=== PATIENT | female | born 1985 | race Caucasian/White ===

== ENCOUNTER 2020-09-22 10:00 | Outpatient (RCR) | payer OTHER, SELFPAY ==
[2020-09-22] MEDS: RHO(D) IMMUNE GLOBULIN 300 MCG/2 ML SYRINGE IM (12:51)
== END 2020-11-01 13:45 | disposition home or self-care (01) ==
LOC: ANHOBOP 10:00
PROVIDERS: PCP Physician Assistant; Visit Provider Obstetrics & Gynecology
DX: Z29.13 Encounter for prophylactic Rho(D) immune globulin (principal); O36.0190 Maternal care for anti-D [Rh] antibodies, unspecified trimester, not applicable or unspecified; Z3A.00 Weeks of gestation of pregnancy not specified
CPT/HCPCS: 36415; 85461; 90384; 96372; 99199; J2790

== ENCOUNTER 2020-11-11 06:47 | Inpatient (IN) | payer OTHER, SELFPAY ==
--- NOTE | 2020-11-09 14:07 | P.HP_ITS ---
Obstetrics - Admit Note Admission Note: record reviewed. No pertinent additions to the history and/or any subsequent changes in the physical findings that are not consistent with the expected course of the were found. Additions to the history and/or subsequent changes in the physical findings follow. None. 35 y/o F , 39w by first trimester ultrasound with excellent dating with an CHRISSY of 11/18/20. Her care began 04/06/20 and has had 12 visits. Her is complicated by previous emergency for placental abruption, who now is presenting for a repeat low transverse under spinal anesthesia. Her other complications are MTHFR, abnormal progesterone, GBS carrier, RH negative, rubella non-immune, PCOS and h/o pre- eclampsia. Her was monitored with ultrasounds each trimester, B12 injections, aspirin, folic acid and progesterone supplements. NIPT normal, AFP normal, GTT normal, GBS positive. Rhogam was given at 28 weeks. I have explained her procedure and risks involved, including bleeding, infection, injury to bladder, bowel, baby, DVT, pneumonia, wound infection, UTI, risk of post infection and hemorrhage and risk of anesthesia. She understands all this, accepts and proceeds to agree. She is having a boy, will circumcise, breast feeding, PPBC is slynd while nursing
--- NOTE | 2020-11-09 14:07 | PM.IMHP ---
H&P: HPI History of Present Illness Date/Time: 11/09/20 14:07 35 y/o F , 39w by first trimester ultrasound with excellent dating with an CHRISSY of 11/18/20. Her care began 04/06/20 and has had 12 visits. Her is complicated by previous emergency for placental abruption, who now is presenting for a repeat low transverse under spinal anesthesia. Her other complications are MTHFR, abnormal progesterone, GBS carrier, RH negative, rubella non-immune, PCOS and h/o pre-eclampsia. Her was monitored with ultrasounds each trimester, B12 injections, aspirin, folic acid and progesterone supplements. NIPT normal, AFP normal, GTT normal, GBS positive. Rhogam was given at 28 weeks. I have explained her procedure and risks involved, including bleeding, infection, injury to bladder, bowel, baby, DVT, pneumonia, wound infection, UTI, risk of post infection and hemorrhage and risk of anesthesia. She understands all this, accepts and proceeds to agree. She is having a boy, will circumcise, breast feeding, PPBC is slynd while nursing. Chief Complaint: term previous desired repeat Review of Systems Review of Systems: All systems reviewed & are unremarkable except as noted in HPI and below Constitutional: Constitutional: Reports no additional constitutional complaints Eyes: Eyes: Reports no additional eye complaints ENT: Reports nasal congestion, Reports nasal discharge and Reports sinus pressure Cardiovascular: Cardiovascular: Reports no additional cardiovascular complaints Respiratory: Respiratory: Reports no additional respiratory complaints Gastrointestinal: Gastrointestinal: Reports no additional gastrointestinal complaints Genitourinary: Genitourinary: Reports no additional female genitourinary complaints Musculoskeletal: Musculoskeletal: Reports no additional musculoskeletal complaints Integumentary/Breasts: Skin/Breast: Reports system reviewed and no additional complaints, except as docu Neurologic: Reports system reviewed and no additional complaints, except as documented Psychiatric: Psychiatric: Reports no additional psychiatric complaints Endocrine: Endocrine: Reports no additional endocrine complaints Hematologic/Lymphatic: Hematologic/Lymphatic: Reports no additional hematologic/lymphatic complaints Allergic/Immunologic: Allergic/Immunologic: Reports seasonal rhinorrhea [facility] Past Medical History Medical History (Updated 11/09/20 @ 14:55 by Martin Martinez MD) 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 Depressive disorder GBS (group B Streptococcus carrier), +RV culture, currently History of placental abruption History of pre-eclampsia Low serum progesterone PCOS (polycystic ovarian syndrome) Rh negative state in antepartum period Rubella non-immune status, antepartum Surgical History Surgical History (Updated 11/09/20 @ 14:55 by Martin Martinez MD) Delivery by section History of tooth extraction Family History Family History (Updated 11/09/20 @ 14:59 by Martin Martinez MD) Grandparent Hypertension Breast cancer Hypercholesterolemia Social History Social History (Updated 11/09/20 @ 14:57 by Martin Martinez MD) Years smoked: 2 Smoking status: Former smoker Tobacco type: cigarettes Second hand tobacco smoke exposure: Yes Alcohol intake: former Substance use: never Substance use type: does not use Living arrangements: with family Occupation/Education: unemployed Gender identity (if verbalized by the patient): Female Sexual Orientation (if Verbalized by the Patient): Straight or Heterosexual Spiritual care concerns: No Agree to blood products: Yes Meds Home Medications and Allergies Home Medications Medication Instructions Recorded Confirmed Type PNV cmb#95-ferrous fumarate-FA 1 tablet PO DAILY 10/20/20 10/20/20 History []
[2020-11-11] VITALS (59 sets, daily range): BP systolic 109–139; BP diastolic 46–105; PULSE 59–90; RESP 15–18; TEMP 35.8–37; O2SAT 98–100; BMI 31.1
--- OUTSIDE RECORDS SUMMARY | 2020-11-11 06:54 | XMS_ITS | Encounter Summary ---
:1985 Author Care Team Providers Name Role Phone Martin Martinez MD Sanitary Plumber [phone] Reason for Visit ob routine visit Assessment and Plan 1. Routine care ? urinalysis, dipstick 2. Deliveries by emergency c-sect. 02/27/2017 fo r [facility] placental abruption repeat c section on 11/11/20 39 weeks An derson 3. Abnormal progesterone 4. Heterozygous methylenetetrahy drofolate reductase mutation 5. Group B Streptococcus carrier antibiotics needed at delivery 6. RhD negative 28weeks 7. Placental abruption - deliver ed emergency c-sect. 02/27/2017 8. depression escitalopram 10 mg started ? depression after childbirt h: care instructions ? stress in parents of infan ts: care instructions 9. Acute sinusitis ? sinusitis: care instructio ns ? Zithromax Z-Nathaniel 250 mg tab let ? Zyrtec 10 mg tablet ? Flonase Allergy Relief 50 mcg/actuation nasal spray,suspension ? montelukast 10 mg tablet Discussion Note: None recorded. Plan of Care Reminders Provider Appointments 12/01/2020 Mary Grace Dougherty 10:30AM ? Return to on or around Martin Martinez
--- OUTSIDE RECORDS SUMMARY | 2020-11-11 06:54 | XMS_ITS | Encounter Summary ---
:1985 Author Care Team Providers Name Role Phone Martin Martinez MD Affirmative Action Officer [phone] Reason for Visit ob routine follow up Assessment and Plan 1. Routine care ? US, obstetric, 3rd trimest er ? counting your baby's kicks : care instructions ? kick counts ? CBC - In addition to our o ffice, please fax results to [facility] [phone] 2. screening ? glucose tolerance test, po st-50G, 1-hour - In addition to our office, please fax results to [facility] [phone] 3. Venereal disease screening ? HIV 1+2 AB + HIV 1 p24 Ag, qualitative immunoassay, serum - Please fax results to [facility] [phone] ? RPR (rapid plasma reagin), serum - Please fax results to [facility] [phone] 4. Heterozygous methylenetetrahy drofolate reductase mutation Discussion Note: None recorded. Plan of Care Reminders Provider Appointments 12/01/2020 Martin Martinez MD 15 10:30AM ? Return to on or around Martin Martinez MD Office 12/13/2020 Lab [facility] 09/21/2020 [facility] ? Glucose 09/21/2020 [facility] Tolerance Test, Post-50G, 1-Hour ? HIV 1+2 AB + 09/21/2020 [facility] HIV 1 P24 Ag,
--- OUTSIDE RECORDS SUMMARY | 2020-11-11 06:54 | XMS_ITS | Encounter Summary ---
:1985 Author Care Team Providers Name Role Phone Martin Martinez MD Nutrition Services Assistant [phone] Reason for Visit ob routine visit Assessment and Plan Assessment Note COLEMAN Ott 1. Routine care LBUNA at 36w5d. compli cated by hx of PCOS, MTHFR, GBS carrier, previous delivery, 1st pregnan cy complicated by placental abruption at 40w1d. 3rd trimester US on 10/03/20, EFW 24%. RTC in 1w with Dr. Martinez. ? urinalysis, dipstick 2. Deliveries by Repeat scheduled for 11/11/2020. 3. Heterozygous methylenetetrahy drofolate reductase mutation heterozygous for the MTHFR C67 7T variant. Continue folic acid, aspirin. Last B12 administered 10/20/20. 4. History of pre-eclampsia Continue ASA for pre-eclampsia prevention, warning signs discussed. 5. RhD negative Rhogam injection given around 28w. Discussion Note: None recorded.Patient educational handouts: No information available. Plan of Care Reminders Provider Appointments 12/01/2020 Martin Martinez, 15 10:30AM ? Return to on or around Martin Martinez, Office 12/13/2020 Lab Urinalysis, 10/26/2020 In-Of fice Order Dipstick Referral None ? ? recorded. Procedures None ? ? recorded.
--- OUTSIDE RECORDS SUMMARY | 2020-11-11 06:54 | XMS_ITS | Encounter Summary ---
:1985 Author Care Team Providers Name Role Phone Martin Martinez MD Electrician Crane Maintenance [phone] Reason for Visit ob routine visit Assessment and Plan 1. Routine care emergency c-sect. 02/27/2017 fo r [facility] placental abruption ? US, obstetric, 3rd trimest er ? counting your baby's kicks : care instructions ? kick counts ? CBC - In addition to our o ffice, please fax results to [facility] [phone] 2. Deliveries by emergency c-sect. 02/27/2017 fo r [facility] placental abruption 3. Heterozygous methylenetetrahy drofolate reductase mutation 4. RhD negative 28weeks ? antibody screen, serum or plasma 5. History of pre-eclampsia 6. screening ? glucose tolerance test, po st-50G, 1-hour - In addition to our office, please fax results to [facility] [phone] Discussion Note: None recorded. Plan of Care Reminders Provider Appointments 12/01/2020 Martin Martinez MD 15 10:30AM ? Return to on or around Martin Martinez MD Office 12/13/2020 Lab C[facility] 09/21/2020 [facility] ? Glucose 09/21/2020 [facility] Tolerance Test, Post-50G, 1-Hour ? Antibody 09/21/2020 [facility]
--- OUTSIDE RECORDS SUMMARY | 2020-11-11 06:54 | XMS_ITS | Encounter Summary ---
:1985 Author Care Team Providers Name Role Phone Martin Martinez MD Build Automation Engineer [phone] Reason for Visit ob routine visit Assessment and Plan 1. Routine care emergency c-sect. 02/27/2017 fo r [facility] placental abruption ? urinalysis, dipstick 2. Deliveries by emergency c-sect. 02/27/2017 fo r [facility] placental abruption repeat c section on 11/11/20 39 weeks ? section (SURG) 3. Heterozygous methylenetetrahy drofolate reductase mutation 4. History of pre-eclampsia Discussion Note: None recorded.Patient educational handouts: No information available. Plan of Care Reminders Provider Appointments 12/01/2020 Martin Martinez, 15 10:30AM ? Return to on or around Martin Martinez, Office 12/13/2020 Lab Urinalysis, 10/06/2020 In-Of fice Order Dipstick Referral None ? ? recorded. Procedures None ? ? recorded. Surgeries 10/06/2020 [facility] (SURG) [facility] None ? ? recorded. Medications Name Start Date ? ? aspirin 81 mg tablet,delayed release ? TAKE 1 TABLET BY MOUTH TWICE A DAY cyanocobalamin (vit B-12) 1,000 mcg/mL injection solut ion ? Inject 1 mL every month by subcutaneous route. escitalopram 10 mg tablet ?
--- OUTSIDE RECORDS SUMMARY | 2020-11-11 06:54 | XMS_ITS | Encounter Summary ---
:1985 Author Care Team Providers Name Role Phone Martin Martinez MD Director Of Estate [phone] Reason for Visit ob routine visit Assessment and Plan Assessment Note RONNY ButtS 1. Routine care ? culture, vaginal/rectal, s treptococcus group B - PLEASE FAX RESULTS TO [facility] [phone] ? bacterial vaginosis + vagi nitis panel, vaginal - PLEASE FAX RESULTS TO [facility] [phone] ? HSV (1+2) DNA, qual, PCR, unspecified specimen - PLEASE FAX RESULTS TO [facility] AT [phone] ? urinalysis, dipstick 2. Heterozygous methylenetetrahy drofolate reductase mutation B12 given today. 3. Deliveries by emergency c-sect. 02/27/2017 fo r [facility] placental abruption repeat c section on 11/11/20 39 weeks An derson 4. Abnormal progesterone 5. Group B Streptococcus carrier 6. Polycystic ovary syndrome 7. Rubella non-immune pp booster Discussion Note: None recorded.Patient educational handouts: No information available. Plan of Care Reminders Provider Appointments 15 12/01/2020 Demi sears 10:30AM MD Juan ? Return to on or around Martin Office 12/13/2020 MD Juan [facility]
--- OUTSIDE RECORDS SUMMARY | 2020-11-11 06:54 | XMS_ITS | Encounter Summary ---
:1985 Author Care Team Providers Name Role Phone Martin Martinez MD Transcription Manager [phone] Reason for Visit ob routine visit Assessment and Plan 1. Routine care ? urinalysis, dipstick 2. Deliveries by emergency c-sect. 02/27/2017 fo r [facility] placental abruption repeat c section on 11/11/20 39 weeks An derson 3. Heterozygous methylenetetrahy drofolate reductase mutation 4. Group B Streptococcus carrier 5. History of pre-eclampsia 6. RhD negative 28weeks 7. Placental abruption - deliver ed emergency c-sect. 02/27/2017 8. depression ? depression after childbirt h: care instructions ? stress in parents of infan ts: care instructions ? escitalopram 10 mg tablet Discussion Note: None recorded. Plan of Care Reminders Provider Appointments 12/01/2020 Martin Martinez, 15 10:30AM ? Return to on or around Martin Martinez, Office 12/13/2020 Lab Urinalysis, 11/03/2020 In-Of fice Order Dipstick Referral None ? ? recorded. Procedures None ? ? recorded. Surgeries None ? ? recorded.
--- OUTSIDE RECORDS SUMMARY | 2020-11-11 06:54 | XMS_ITS ---
:1985 Author Care Team Providers Name Role Phone VIRGINIA TIDWELL MD Forms Designer [phone] Allergies Code Code System Name Reaction Severity Status Onset [id number] RxNorm Josep Hives Moderate Active ? NKDA ? Medications Name Status Start Date Stop Date ? ? aspirin 81 mg tablet,delayed release Active ? Not available TAKE 1 TABLET BY MOUTH TWICE A DAY Calcium 600 with Vitamin D3 600 mg (1,500 mg)-400 unit capsule C ompleted ? 04/20/2020 Take 1 capsule twice a day by oral route. calcium carbonate 600 mg (1,500 mg)-vitamin D3 400 unit tablet C ompleted ? 05/04/2020 TAKE 1 TABLET BY MOUTH TWICE A DAY cyanocobalamin (vit B-12) 1,000 mcg/mL injection solution Active ? Not available Inject 1 mL every month by subcutaneous route. escitalopram 10 mg tablet Active ? Not av ailable Flonase Allergy Relief 50 mcg/actuation nasal spray,suspension A ctive ? Not available [place] 1 spray every day by intranasal route as directed. folic acid 1 mg tablet Active ? Not avail able TAKE 2 TABLETS BY MOUTH TWICE A DAY Linzess 145 mcg capsule Active ? Not avai lable Take 1 capsule every day by oral route. metformin 500 mg tablet Active ? Not avai lable metoclopramide 10 mg tablet Active ? Not available Take 1 tablet 4 times a day by oral route as directed. montelukast 10 mg tablet Active ? Not roxanne ilable Take 1 tablet every day by oral route. multivitamin tablet Completed ? 04/20/2020 Take 1 tablet every day by oral route. norethindrone (contraceptive) 0.35 mg Completed ?
--- OUTSIDE RECORDS SUMMARY | 2020-11-11 06:55 | XMS_ITS ---
:1985 Author Care Team Providers Name Role Phone [facility] Primary Care Provider Unavailable Allergies Code Code System Name Reaction Severity Status Onset NKDA ? Notes: cats Medications Name Status Start Date Stop Date ? ? atovaquone 250 mg-proguanil 100 mg Completed ? 08/03/2016 tablet ibuprofen 600 mg tablet Completed ? 03/26/19 18 Iron (ferrous sulfate) Active ? Not avail able norethindrone (contraceptive) 0.35 mg Active ? Not available tablet oxycodone-acetaminophen 5 mg-325 mg Completed ? 03/26/2017 tablet prednisone 10 mg tablet Unknown ? Not avai lable Active ? Not available Ventolin HFA 90 mcg/actuation aerosol inhaler Unknown ? Not available INHALE ONE TO TWO PUFFS Q 4-6 HOURS PRN FOR COUGH AND WHEEZING. Vivotif 2 billion unit capsule,delayed release Completed ? 08/03/2016 TK ONE CAPSULE PO QOD YF-Vax (PF) 10 exp4.74 unit/0.5 mL subcutaneous suspension Compl eted ? 08/03/2016 [address] [facility] Notes: pnv Problems Name Status Onset Date Source ? Unknown 10/10/2016 ? Carito Active ? Encounter Irregular Periods Active ? ? Procedures Date Name Performed by ? 02/27/2017 Delivery Information not carter chavez 02/27/2017 Information not kellyai [facility]
--- OUTSIDE RECORDS SUMMARY | 2020-11-11 06:55 | XMS_ITS ---
:1985 Author Care Team Providers Name Role Phone [facility] Primary Care Provider Unavailable Allergies Code Code System Name Reaction Severity Status Onset NKDA ? Medications Name Status Start Date Stop Date ? ? atovaquone 250 mg-proguanil 100 mg tablet Active ? Not available Cheratussin AC 10 mg-100 mg/5 mL oral liquid Active ? Not available Take 5 mL every 4 hours by oral route as needed. fluticasone propionate 50 mcg/actuation nasal spray,suspension A ctive ? Not available Inhale 2 sprays every day by intranasal route. ibuprofen 600 mg tablet Active ? Not avai lable nitrofurantoin monohydrate/macrocrystals Active ? Not available 100 mg capsule norethindrone (contraceptive) 0.35 mg Active ? Not available tablet oxycodone-acetaminophen 5 mg-325 mg tablet Active ? Not available prednisone 10 mg tablet Active ? Not avai lable Ventolin HFA 90 mcg/actuation aerosol Active ? Not available inhaler Vivotif 2 billion unit capsule,delayed release Active ? Not available TK ONE CAPSULE PO QOD YF-Vax (PF) 10 exp4.74 unit/0.5 mL subcutaneous suspension Activ e ? Not available [facility] Problems Name Status Onset Date Source ? Postviral Cough Active ? Encounter Upper Respiratory Infection Active ? Enco unter Acute Upper Respiratory Infection Active ?
--- OUTSIDE RECORDS SUMMARY | 2020-11-11 06:55 | XMS_ITS ---
:1985 Author Care Team Providers Name Role Phone [facility] Primary Care Provider Unavailable Allergies Code Code System Name Reaction Severity Status Onset NKDA ? Medications Name Status Start Date Stop Date ? ? albuterol sulfate 2.5 mg/3 mL (0.083 %) solution for nebulizatio n Unknown ? Not available Inhale 3 mL every day by nebulization route. atovaquone 250 mg-proguanil 100 mg Completed ? 12/18/2017 tablet Cheratussin AC 10 mg-100 mg/5 mL oral liquid Unknown ? Not available Take 10 mL every 4 hours by oral route. ibuprofen 600 mg tablet Active ? Not avai lable PRN Levaquin 500 mg tablet Unknown ? Not avail able Take 1 tablet every 24 hours by oral route. Macrobid 100 mg capsule Completed ? 12/18/19 18 Take 1 capsule every 12 hours by oral route. Medrol (Nathaniel) 4 mg tablets in a dose pack Unknown ? Not available Take by oral route as directed norethindrone (contraceptive) 0.35 mg Completed ? 04/17/2018 tablet oxycodone-acetaminophen 5 mg-325 mg Completed ? 12/18/2017 tablet Pepcid Active ? Not available takes PRN prednisone 10 mg tablet Unknown ? Not avai lable ProAir HFA 90 mcg/actuation aerosol inhaler Unknown ? Not available Inhale 2 puffs every 6 hours by inhalation route. Pyridium 200 mg tablet Completed ? 8 Take 1 tablet 3 times a day by oral route for 3 days.
--- NOTE | 2020-11-11 07:19 | LDADM ---
This patient, Josey Cedillo, was admitted to Labor/Delivery/Recovery 119 on 11/11/20 at 06:47. Plans for labor, pain management and were discussed with patient. Patient/family oriented to hospital policies and general routines including ID bracelet, bed and alarms, visiting hours, pain management, procedures, bathroom and other care routines, personal items, smoking policy, room service/diet and guest tray routines, security routines, and visiting hours. Patient/Family are encouraged to report perceived risks to care and to ask questions if they do not understand what they are told or what they should do. See OBIX for further documentation.
[2020-11-11] MEDS: LACTATED RINGERS 1,000 ML 125 ML IV CONT (07:45)
--- NOTE | 2020-11-11 07:45 | P.HPUP_ITS ---
History and Physical Update Update Date/Time: 11/09/20 14:16 History and Physical has been reviewed, including an updated exam of the patient. There are NO changes in the patient's condition. Risks, benefits, and alternatives have been discussed and questions answered. Patient agrees to proceed with procedure. 35 y/o F , 39w by first trimester ultrasound with excellent dating with an CHRISSY of 11/18/20. Her care began 04/06/20 and has had 12 visits. Her is complicated by previous emergency for placental abruption, who now is presenting for a repeat low transverse under spinal anesthesia. Her other complications are MTHFR, abnormal progesterone, GBS carrier, RH negative, rubella non-immune, PCOS and h/o pre- eclampsia. Her was monitored with ultrasounds each trimester, B12 injections, aspirin, folic acid and progesterone supplements. NIPT normal, AFP normal, GTT normal, GBS positive. Rhogam was given at 28 weeks. I have explained her procedure and risks involved, including bleeding, i nfection, injury to bladder, bowel, baby, DVT, pneumonia, wound infection, UTI, risk of post infection and hemorrhage and risk of anesthesia. She understands all this, accepts and proceeds to agree. She is having a boy, will circumcise, breast feeding, PPBC is slynd while nursing
[2020-11-11 07:57] LABS: Basophils Percent Auto 0.4 % (0.2-1.2); Eosinophils Absolute Auto 0.2 K/mm3 (0-0.3); Eosinophils Percent Auto 2.9 % (0-4.4); Hematocrit 33.5 % (37.0-47.0); Hemoglobin 11.3 g/dL (12.0-15.0); Immature Granulocyte Absolute 0.03 K/mm3 (0.00-0.031); Immature Granulocyte Percent A 0.4 % (0-0.5); Lymphocytes Absolute Auto 1.71 K/mm3 (0.9-3.2); Lymphocytes Percent Auto 23.3 % (18.3-44.2); Mean Corpuscular HGB Conc 33.7 g/dl (32-36); Mean Corpuscular Hemoglobin 29.4 pg (26-34); Mean Platelet Volume 9.7 fl (7.4-10.4); Monocytes Absolute Auto 0.5 K/mm3 (0.1-0.6); Monocytes Percent Auto 6.3 % (2.6-8.5); Neutrophils Absolute Auto 4.9 K/mm3 (1.3-6.7); Neutrophils Percent Auto 66.7 % (45.5-73.1); Platelet Count Result 209 k/mm3 (150-375); Red Blood Count 3.85 M/mm3 (4.2-5.4); Red Cell Distribution Width 15.4 % (11.5-14.5); White Blood Count 7.4 K/mm3 (4.5-10.0)
--- NOTE | 2020-11-11 08:33 | WPDANESEPPF ---
Anes - Initial Pre Proc Eval Procedure: Operation Date: 11/11/20 09:00 Proposed Procedures p Repeat Section - Martin Martinez MD Date/Time: 11/11/20 08:33 Surgeon: Martin Martinez MD Pre Op Diagnosis: C Section Patient Data Age: 35 Gender: F Height: 1.7 m Weight: 90 kg Last Vital Signs Pulse 82 11/11/20 07:31 BP 128/76 11/11/20 07:31 Allergies Allergy/AdvReac Type Severity Reaction Status Date / Time naresh Allergy Rash Verified 11/11/20 07:29 Home Medications Medication Instructions Recorded Confirmed Type PNV cmb#95-ferrous fumarate-FA 1 tablet PO DAILY 10/20/20 11/11/20 History [] aspirin 81 mg PO BID 10/20/20 11/11/20 History metformin 500 mg PO BID 10/20/20 11/11/20 History Laboratory Tests 11/11/20 11/11/20 07:12 07:15 WBC 7.4 K/mm3 K/mm3 (4.5-10.0) RBC 3.85 M/mm3 L M/mm3 (4.2-5.4) Hgb 11.3 g/dL L g/dL (12.0-15.0) Hct 33.5 % L % (37.0-47.0) MCV 87.0 fl fl (80-100) MCH 29.4 pg pg (26-34) MCHC 33.7 g/dl g/dl (32-36) RDW 15.4 % H % (11.5-14.5) Plt Count 209 k/mm3 k/mm3 (150-375) MPV 9.7 fl fl (7.4-10.4) Immature Gran % (Auto) 0.4 % % (0-0.5) Neut % (Auto) 66.7 % % (45.5-73.1) Lymph % (Auto) 23.3 % % (18.3-44.2) Hardy % (Auto) 6.3 % % (2.6-8.5) Eos % (Auto) 2.9 % % (0-4.4) Baso % (Auto) 0.4 % % (0.2-1.2) Lymph # (Auto) 1.71 K/mm3 K/mm3 (0.9-3.2) Hardy # (Auto) 0.5 K/mm3 K/mm3 (0.1-0.6) Eos # (Auto) 0.2 K/mm3 K/mm3 (0-0.3) Baso # (Auto) 0.0 K/mm3 K/mm3 (0.0-0.1) Abs Immat Gran (auto) 0.03 K/mm3 K/mm3 (0.00-0.031) Absolute Neuts (auto) 4.9 K/mm3 K/mm3 (1.3-6.7) Absolute Nucleated RBC 0.0 K/mm3 K/mm3 (0.0-0.012) Nucleated RBC % 0.0 % % (0.0-0.2) RPR Pending Patient hx anesthesia problems: none Family hx anesthesia problems: none Results Review: All pre-operative results and documents have been reviewed as part of the pre-operative evaluation. [facility] Past Medical History Medical History Compound heterozygous MTHFR mutation [id number] Depressive disorder GBS (group B Streptococcus carrier), +RV culture, currently History of placental abruption History of pre-eclampsia Low serum progesterone PCOS (polycystic ovarian syndrome) Rh negative state in antepartum period Rubella non-immune status, antepartum Surgical History Surgical History Delivery by section History of tooth extraction Family History Family History Grandparent Hypertension Breast cancer Hypercholesterolemia Social History Social History Years smoked: 2 Smoking status: Never smoker Tobacco type: cigarettes Second hand tobacco smoke exposure: Yes Alcohol intake: former Substance use: never Substance use type: does not use Living arrangements: with family Occupation/Education: unemployed Gender identity (if verbalized by the patient): Female Sexual Orientation (if Verbalized by the Patient): Straight or Heterosexual Spiritual care concerns: No Agree to blood products: Yes Anes - Eval Final PreProcedure Day of Procedure 11/11/20 08:33 Patient weight: overweight Heart: regular rate and rhythm Lungs: clear to auscultation Airway: Mallampati scale class II Neurological: alert and oriented Last oral intake: >/= 8 hours ASA classification: II Emergent: no Anesthetic plan: proceed Anesthesia type and monitoring: regional spinal and standard monitoring Results Review: All pre-operative results and documents have been reviewed as part of the pre-operative evaluation. Informed Consent
[2020-11-11] MEDS: OXYTOCIN 10 UNITS/ML VIAL IM (09:06)
[2020-11-11] MEDS: ceFAZolin 2 GM/D5W 50 ML 2 GM/50 ML BAG IVPB (09:06)
--- NOTE | 2020-11-11 10:10 | W.PM.PROC2 ---
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 on 11/11/2020. Infant weighed 7 lb 4 oz score at 1 minute 9 and at 5 minutes 9. Normal transition to nursery in stable condition. Placenta delivered intact with three-vessel cord, nuchal cord x1 reduced at time of delivery. Clear amniotic fluid at the time of delivery Uterus tubes and ovaries normal. Cul-de-sac clear of any blood clots. Quantitative blood loss 525 mL. 2100 mL IV fluid. Salas catheter output 300 mL of urine. Counts correct. No complications. Antibiotic prophylaxis Ancef 2 g given. VTE prevention is SCDs. Patient taken to recovery room. Mom and baby stable condition Description of Procedure Patient was consented and taken to the operating room for desired repeat low-transverse . She was placed in sitting position and spinal anesthetic was administered. Patient was then placed in the supine position and Salas catheter was inserted. The abdomen was prepped in a sterile fashion. A time-out was performed. Sterile drapes were placed. An elliptical incision was performed on the old incision site. The old scar was removed using electrocautery and taken down to Marva's fascia. The abdominal fascia was identified and undermined with electric cautery bilaterally. The [place] clamps were placed on the lateral fascia to identify the superior and inferior abdominal fascia and to be undermined with electrocautery. Next the rectus muscle was incised in the midline using electrocautery and the peritoneum was digitally dissected. Confirmation of the vertex position of the fetus. Followed by low-transverse incision to lower uterus followed by electrocautery. The amniotic sac was manually broken with clear amniotic fluid identified. Fundal pressure was used to to deliver the vertex fetus to the abdominal incision. The nuchal cord was reduced around the infant's neck x1. The infant was placed on maternal abdomen, the cord was cut and clamped, mouth with suction and was handed to nursery nurse in attendance. The infant was delivered at 9:31 a.m. on 11/11/2020. Female infant, 7 lb 4 oz, score at 1 minute was 9 and at 5 minutes 9. was transferred to nursery in stable condition. The placenta was delivered with three-vessel cord intact, cord blood and cord blood gases were obtained. The uterus was externalized and blood clots removed her intrauterine cavity. The uterus contracted normally with Pitocin given intravenously and 10 units injected into the myometrium. The uterine incision was repaired with 2 layers with 0 Vicryl in a running interlocking fashion the 2nd stitch was an imbricating stitch overlying the 1st. Irrigation was performed and blood clots removed from the cul-de-sac. Uterus was returned to peritoneum cavity. Blood clots removed from lateral margin of pelvis. Sponge needle and instrument count was correct. Anterior peritoneum and rectus muscles closed with 0 Vicryl in a running fashion. Fascia closed with 2. Quill and SRS fascia bilaterally. Hemostasis was obtained with electrocautery. Marva's fascia realigned with 3-0 plain. Insorb stable device used to close skin then Dermaflex was used on top the skin. Mepilex dressing placed on top of incision. Arpit
--- NOTE | 2020-11-11 10:46 | PM.OBPRVD ---
OB - Delivery Note Procedure Procedure: Procedures Operation Date: 11/11/20 09:00 Actual Procedure Side Surgeon Repeat Section with delivery of viable female infant and placenta Martin Martinez MD events: Previous (Previous low-transverse ) and Rh Incompatibility (Rh negative) Intrapartal events: None Induction method: none Delivery monitor: none Route of delivery: (Repeat low-transverse with viable female infant and placenta) Episiotomy description: None Laceration Description: None Specimen: Yes (Placenta, cord blood and cord blood gases) Quantitative Blood Loss (ml): 525 Anesthesia type: Spinal (Duramorph) Disposition: floor Complications: None Baby Date of : 11/11/20 Time of : 09:31 Weeks of gestation at delivery: 39 gender: Female (Mallyjosé miguel Chew) Weight (pounds): 7 Weight (ounces): 4 presentation: vertex Placenta delivery description: Manual Removal cord vessel description: 3 Vessels, Nuchal Cord (X1) and Reduced (Nuchal cord reduced around the neck) score one minute: 9 score five minutes: 9
[2020-11-11 11:03] LABS: Rapid Plasma Reagin Non-Reactive (NonReactive)
[2020-11-11] MEDS: KETOROLAC 30 MG/ML VIAL (*BKC) IV PUSH ×2 (12:11→19:12)
[2020-11-11] MEDS: OXYTOCIN 30 UNITS/NS 500 ML 30 UNITS/500 ML BAG 125 UNITS IV CONT (12:32)
--- NOTE | 2020-11-11 13:50 | PC.NURSE ---
Consulted with patient, noted mother had significant breast asymmetry. Reviewed feeding cues, frequencies, duration of feedings, feeding elimination flow sheet, and signs of adequate intake. Demonstrated stimulation techniques to wake for feeding. Assisted with to breast. Reviewed positioning/alignment, holding breast and asymmetrical latch on. Infant was able to latch correctly. nursed eagerly, with steady draws and occasional swallowing noted. Reviewed signs of a correct latch, effective nursing and suck swallow ratio. was able to maintain latch without discomfort to mother. Nipple care reviewed. Instructed mother to call out for RN assistance if she is unable to latch infant for feeding or she has discomfort with nursing. Instructed feeding should be initiated three hours from start of last feeding or if feeding cues are noted before. Mother voiced understanding of information shared.
[2020-11-11] MEDS: ONDANSETRON INJ 4 MG/2 ML VIAL IV PUSH (15:30)
[2020-11-11] MEDS: DEXTROSE 5%/0.45% SOD CHL 1,000 ML 125 ML IV CONT (17:21)
[2020-11-12] MEDS: KETOROLAC 30 MG/ML VIAL (*BKC) IV PUSH (00:27)
[2020-11-12 00:30] VITALS: BP 100/61; PULSE 77; RESP 18; TEMP 36.4; O2SAT 96
[2020-11-12 05:30] VITALS: BP 104/64; PULSE 73; RESP 18; TEMP 36.4; O2SAT 97
[2020-11-12 06:30] LABS: Basophils Percent Auto 0.3 % (0.2-1.2); Eosinophils Absolute Auto 0.3 K/mm3 (0-0.3); Eosinophils Percent Auto 3.8 % (0-4.4); Hematocrit 26.5 % (37.0-47.0); Hemoglobin 9.2 g/dL (12.0-15.0); Immature Granulocyte Absolute 0.03 K/mm3 (0.00-0.031); Immature Granulocyte Percent A 0.4 % (0-0.5); Lymphocytes Absolute Auto 1.42 K/mm3 (0.9-3.2); Lymphocytes Percent Auto 19.8 % (18.3-44.2); Mean Corpuscular HGB Conc 34.7 g/dl (32-36); Mean Corpuscular Hemoglobin 30.2 pg (26-34); Mean Corpuscular Volume 86.9 fl (80-100); Monocytes Absolute Auto 0.5 K/mm3 (0.1-0.6); Monocytes Percent Auto 6.4 % (2.6-8.5); Neutrophils Percent Auto 69.3 % (45.5-73.1); Platelet Count Result 185 k/mm3 (150-375); Red Blood Count 3.05 M/mm3 (4.2-5.4); Red Cell Distribution Width 15.4 % (11.5-14.5); White Blood Count 7.2 K/mm3 (4.5-10.0)
--- NOTE | 2020-11-12 07:25 | PM.OBPNVD ---
OB - PN: Subj Subjective Date/time seen: 11/12/20 07:25 Patient comments: no complaints, pain well controlled, incisional pain, tolerating diet and flatus present baby status: doing well [place] feeding status: exclusively breast feeding OB - PN: Obj Data Labs CBC & Chem 7: 11/12/20 05:24 Labs: Laboratory Results - last 24 hr 11/11/20 11/11/20 11/11/20 07:12 07:15 07:15 WBC 7.4 RBC 3.85 L Hgb 11.3 L Hct 33.5 L MCV 87.0 MCH 29.4 MCHC 33.7 RDW 15.4 H Plt Count 209 MPV 9.7 Immature Gran % (Auto) 0.4 Neut % (Auto) 66.7 Lymph % (Auto) 23.3 [place] % (Auto) 6.3 Eos % (Auto) 2.9 Baso % (Auto) 0.4 Lymph # (Auto) 1.71 [place] # (Auto) 0.5 Eos # (Auto) 0.2 Baso # (Auto) 0.0 Abs Immat Gran (auto) 0.03 Absolute Neuts (auto) 4.9 Absolute Nucleated RBC 0.0 Nucleated RBC % 0.0 RPR Non-reactive Blood Type O Negative Antibody Screen Positive Antibody Identification Passive Due to RH Imm Glob Antigen Identification TNP BANDAR, IgG Interpret Not Performed BANDAR, Poly Interpret Negative BANDAR, Complement Interp Not Performed 11/12/20 05:24 WBC 7.2 RBC 3.05 L Hgb 9.2 L Hct 26.5 L MCV 86.9 MCH 30.2 MCHC 34.7 RDW 15.4 H Plt Count 185 MPV 10.0 Immature Gran % (Auto) 0.4 Neut % (Auto) 69.3 Lymph % (Auto) 19.8 [place] % (Auto) 6.4 Eos % (Auto) 3.8 Baso % (Auto) 0.3 Lymph # (Auto) 1.42 [place] # (Auto) 0.5 Eos # (Auto) 0.3 Baso # (Auto) 0.0 Abs Immat Gran (auto) 0.03 Absolute Neuts (auto) 5.0 Absolute Nucleated RBC 0.0 Nucleated RBC % 0.0 RPR Blood Type Antibody Screen Antibody Identification Antigen Identification BANDAR, IgG Interpret BANDAR, Poly Interpret BANDAR, Complement Interp OB - PN A/P Assessment and Plan (1) Term delivered: Code(s): O80 - Encounter for full-term uncomplicated delivery Status: Acute (2) Delivery by section: Status: Acute (3) Rh negative state in antepartum period: Code(s): O26.899 - Other specified related conditions, unspecified trimester; Z67.91 - Unspecified blood type, Rh negative Status: Acute (4) Anemia: Code(s): D64.9 - Anemia, unspecified Status: Acute Time Spent With Patient Time: Total time spent is greater than 50% in coordination of care (as documented) at patient's floor/unit and/or counseling patient: Review of Systems Review of Systems: All systems reviewed & are unremarkable except as noted in HPI and below Exam Const: General: cooperative, healthy appearing, comfortable, no acute distress, alert, awake and Physically active HENMT: Head: normal to inspection Eyes: General: appearance normal, both eyes and all related structures Neck: Neck: normal visual inspection Chest: Chest palpation & inspection: normal inspection of the chest Resp: Effort & Inspection: normal respiratory effort Auscultation: clear to auscultation bilaterally Cardio: Rate: regular rate Rhythm: regular rhythm GI: Inspection: normal to inspection and incision (ddi) GI Palp: Yes Soft to palpation Auscultation: normal bowel sounds : External Female Exam: normal external appearance Back/Spine/Pelvis: Back: no CVA tenderness Skin: General skin exam: normal color Neuro: General: patient oriented x3, gait normal, tone normal and moves all extremities Extrem: General: normal to inspection and full ROM Psych: Appearance: grossly normal Mental Status: mental status grossly normal Speech and movement: Normal speech and movement present Affect: normal affect Attitude: cooperative Thought process: Normal thought process present Thought content: Yes Normal thought content present Insight: Good insight present (Psych) Judgement: Good judgement present (Psych)
[2020-11-12] MEDS: MULTIVIT/MIN/PREN/FOL AC/IRON TABLET 1 TAB PO (08:21)
[2020-11-12] MEDS: DOCUSATE SODIUM 100 MG CAPSULE PO (08:23)
[2020-11-12] MEDS: POLYSACCHARIDE IRON COMPLEX 150 MG CAPSULE PO (08:23)
[2020-11-12] MEDS: HYDROcodone/acetaminophen (*CRX) 5-325 MG TABLET 1 TAB PO ×2 (08:24→14:30)
[2020-11-12] MEDS: IBUPROFEN 600 MG TABLET PO ×3 (08:24→20:01)
[2020-11-12 08:30] VITALS: BP 145/56; PULSE 75; RESP 16; TEMP 36.6; O2SAT 97
--- NOTE | 2020-11-12 11:28 | WPDANLDPN2 ---
Anes-Prog Note L&D Date/Time: 11/12/20 11:28 Comfortable throughout: section Neuraxial method: spinal Epidural/Spinal procedure site: clean & non-tender Neuro status: Neuro function grossly intact. Cardiovascular status: normal Respiratory status: normal Airway patency: baseline Mental status: baseline Post-Op hydration status: normal Vital Signs: Last Vital Signs Temp 36.4 C L 11/12/20 05:30 Pulse 73 11/12/20 05:30 Resp 18 11/12/20 05:30 BP 104/64 11/12/20 05:30 Pulse Ox 97 11/12/20 05:30 Pain score (VAS): 0 I/O: Intake & Output 11/11/20 11/12/20 11/12/20 23:59 07:59 15:59 Intake Total 400 1900 Output Total 250 1850 Balance 150 50 Post-procedural complaints: none Patient feedback: Patient satisfied with anesthetic care.
--- NOTE | 2020-11-12 11:29 | WPDANLDNPN2 ---
Anes-Prog Note L&D-Neuraxial Date/Time: 11/12/20 11:29 Neuraxial medications: intrathecal PF morphine Opiod-related complaints: none Patient feedback: Patient satisfied with post-operative pain management.
[2020-11-12] MEDS: RHO(D) IMMUNE GLOBULIN 300 MCG/2 ML SYRINGE IM (13:14)
[2020-11-12 16:45] VITALS: BP 110/71; PULSE 81; RESP 16; TEMP 36.6; O2SAT 99
[2020-11-12 20:00] VITALS: BP 134/81; PULSE 74; RESP 18; TEMP 36.8; O2SAT 99
[2020-11-12] MEDS: HYDROcodone/acetaminophen (*CRX) 10-325 MG TABLET 1 TAB PO (20:00)
[2020-11-13] MEDS: IBUPROFEN 600 MG TABLET PO ×5 (03:17→22:44)
[2020-11-13] MEDS: HYDROcodone/acetaminophen (*CRX) 5-325 MG TABLET 1 TAB PO ×4 (03:18→16:39)
[2020-11-13 08:00] VITALS: BP 120/75; PULSE 69; RESP 18; TEMP 36.3
[2020-11-13] MEDS: POLYSACCHARIDE IRON COMPLEX 150 MG CAPSULE PO ×2 (08:50→16:39)
[2020-11-13] MEDS: MULTIVIT/MIN/PREN/FOL AC/IRON TABLET 1 TAB PO (08:50)
[2020-11-13] MEDS: DOCUSATE SODIUM 100 MG CAPSULE PO ×2 (08:50→16:39)
[2020-11-13] MEDS: SIMETHICONE 80 MG TAB.CHEW PO ×3 (08:50→22:44)
--- NOTE | 2020-11-13 09:44 | PM.OBDSVD ---
DS: Admitting Diagnosis Discharge Date 11/13/2020 Admitting Diagnosis (1) Term : Code(s): Z34.90 - Encounter for supervision of normal , unspecified, unspecified trimester Status: Acute (2) Delivery by section: Status: Acute (3) Compound heterozygous MTHFR mutation [id number]: Code(s): Z15.89 - Genetic susceptibility to other disease Status: Acute (4) GBS (group B Streptococcus carrier), +RV culture, currently : Code(s): O99.820 - Streptococcus B carrier state complicating Status: Acute (5) Rh negative state in antepartum period: Code(s): O26.899 - Other specified related conditions, unspecified trimester; Z67.91 - Unspecified blood type, Rh negative Status: Acute (6) Rubella non-immune status, antepartum: Code(s): O99.891 - Other specified diseases and conditions complicating ; Z28.3 - Underimmunization status Status: Acute (7) Depressive disorder: Code(s): F32.9 - Major depressive disorder, single episode, unspecified Status: Acute DS: Discharge Diagnosis Discharge Diagnosis (1) Term delivered: Code(s): O80 - Encounter for full-term uncomplicated delivery Status: Acute (2) Delivery by section: Status: Acute (3) Compound heterozygous MTHFR mutation [id number]: Code(s): Z15.89 - Genetic susceptibility to other disease Status: Acute (4) GBS (group B Streptococcus carrier), +RV culture, currently : Code(s): O99.820 - Streptococcus B carrier state complicating Status: Acute (5) Rh negative state in antepartum period: Code(s): O26.899 - Other specified related conditions, unspecified trimester; Z67.91 - Unspecified blood type, Rh negative Status: Acute (6) Rubella non-immune status, antepartum: Code(s): O99.891 - Other specified diseases and conditions complicating ; Z28.3 - Underimmunization status Status: Acute (7) Depressive disorder: Code(s): F32.9 - Major depressive disorder, single episode, unspecified Status: Acute (8) Anemia: Code(s): D64.9 - Anemia, unspecified Status: Acute OB - DS: Summary Hospital Course Time spent discussing smoking cessation with patient: 3 to 10 minutes OB Procedures : Ultrasound OB Procedures Intrapartum: (Repeat) low cervical, transverse OB Procedures: : None Peripartum Data Delivery Method: Section ( repeat low-transverse section with delivery of viable female and placenta) Laceration Description: None Episiotomy description: None Procedures: repeat low-transverse section with delivery of viable female infant and placentaProcedures Operation Date: 11/11/20 09:00 Actual Procedure Side Surgeon p Repeat Section Martin Martinez MD complications: none 1: Gender: Female ( Mally Guzman) Disposition of : home Status at Discharge Cognitive/behavioral status at discharge: normal Functional status at discharge: independent ambulation Overall status at discharge: patient is back to baseline Time Spent with Patient Time attestation: Total time spent providing and/or coordinating discharge services: Time spent: Less than 30 minutes Exam Const: General: cooperative, healthy appearing, comfortable, no acute distress, well developed, alert, awake and Physically active Nutritional Appearance: average body habitus Orientation/consciousness: patient oriented x3 Limitations: no limitations HENMT: Head: normal to inspection Eyes: General: appearance normal, both eyes and all related structures Neck: Neck: normal visual inspection Chest: Chest palpation & inspection: normal inspection of the chest Resp: Effort & Inspection: normal respiratory effort Auscultation: clear to auscu
[2020-11-13 18:30] VITALS: BP 129/75; PULSE 73; RESP 18; TEMP 36.9
[2020-11-13] MEDS: HYDROcodone/acetaminophen (*CRX) 10-325 MG TABLET 1 TAB PO (22:44)
[2020-11-14] MEDS: IBUPROFEN 600 MG TABLET PO ×2 (05:57→11:28)
[2020-11-14] MEDS: SIMETHICONE 80 MG TAB.CHEW PO (05:57)
[2020-11-14] MEDS: HYDROcodone/acetaminophen (*CRX) 10-325 MG TABLET 1 TAB PO (05:58)
[2020-11-14 07:35] VITALS: BP 122/78; PULSE 67; RESP 18; TEMP 36.5; O2SAT 99
--- NOTE | 2020-11-14 09:50 | PC.NURSE ---
Dr. Martinez's office notified that original pharmacy that prescription was sent to is out of [place] so she needs the prescription sent to a different pharmacy. He will send the new prescription to [facility] on [address] in [place].
[2020-11-14] MEDS: POLYSACCHARIDE IRON COMPLEX 150 MG CAPSULE PO (11:27)
[2020-11-14] MEDS: MULTIVIT/MIN/PREN/FOL AC/IRON TABLET 1 TAB PO (11:27)
[2020-11-14] MEDS: HYDROcodone/acetaminophen (*CRX) 5-325 MG TABLET 1 TAB PO (11:28)
--- NOTE | 2020-11-14 13:00 | PC.NURSE ---
Consulted with patient, reviewed infant feeding cues, frequencies, duration of feedings, feeding elimination flow sheet, and signs of adequate intake. Demonstrated stimulation techniques to wake infant for feeding. Assisted with infant to breast. Reviewed positioning/alignment, holding breast and asymmetrical latch on. Mom required assistance to get infant positioned. was able to latch and suck once or twice. Infant would latch to breast and then become frustrated after one or two sucks. on and off breast with crying and pushing away from breast. Mom gave infant 10mls of expressed breastmilk after attempting to feed in cross cradle to help calm infant. Attempted in laid back position with nipple shield and would suck a few times and become frustrated. Reviewed signs of a correct latch, effective nursing and suck swallow ratio. Reviewed use of nipple shield. Mom reported no discomfort during attempt. Nipple care reviewed. Instructed feeding should be initiated three hours from start of last feeding or if feeding cues are noted before. Mother voiced understanding of information shared. Mother denies any nipple discomfort, is feeding expressed breastmilk via bottle for feedings after attempting at breast. Mom is waking infant to feed if needed. Infant is currently meeting outcomes for weight, output, jaundice and feeding frequencies. Reviewed transition to breast milk, signs of adequate intake, and engorgement/relief. Instructed to call ICP if intake/output less than required. Reviewed community resources on the [employer] website and in the Mom/Baby guide. Information on outpatient services provided. Mother has no further questions at this time. Plan going forward: mom will attempt at breast first without nipple shield then with nipple shield for a total of 15 minutes. Mom will then pump for 15 minutes and give a minimum of 30mls of breastmilk up to as desires after attempt. Mom will call with any questions. Mom scheduled for consult on following follow up appt. Mom will call to cancel consult if unable to keep appt. Mom has no questions about plan and states understanding of information shared.
[2020-11-17 11:04] VITALS: BP 125/79; PULSE 75; RESP 16; TEMP 36.8; O2SAT 99
== END 2020-11-14 14:08 | disposition home or self-care (01) | DRG 540 ==
LOC: ANHLDR 06:52 → ANHOB2 12:57
PROVIDERS: Admitting Provider Obstetrics & Gynecology; PCP Physician Assistant; Visit Provider Obstetrics & Gynecology
PROC: 10D00Z1 Extraction of Products of Conception, Low, Open Approach (ICD-10-PCS; CPT 59514; principal; 2020-11-11 09:00)
DX: O34.211 Maternal care for low transverse scar from previous cesarean delivery (principal); O99.284 Endocrine, nutritional and metabolic diseases complicating childbirth; E72.12 Methylenetetrahydrofolate reductase deficiency; E28.2 Polycystic ovarian syndrome; O69.1XX0 Labor and delivery complicated by cord around neck, with compression, not applicable or unspecified; Z3A.39 39 weeks gestation of pregnancy; Z37.0 Single live birth
CPT/HCPCS: 36415; 85025; 85461; 86592; 86850; 86880; 86900; 86901; 86902; 88307; 90384; A9270; J0131; J0690; J1885; J2274; J2370; J2405; J2590; J2790; J7120

== ENCOUNTER 2020-11-17 14:33 | Outpatient (RCR) | payer OTHER, SELFPAY ==
--- NOTE | 2020-11-17 15:00 | PC.NURSE ---
[place] 1155 [id number] HISTORY: Pt. delivered at [facility] at 39 weeks. had no complications after delivery. Mother had no complications after delivery. is now 6 days old. appears to be well cared for. Infant has been seen by ICP as scheduled. Infant last seen by ICP at 1 week. Mother reports: Currently at 6-8wets per day and 3-4 yellow seedy stools per day. weight: 6#15 Discharge weight: 6#10 Last Weight:6#11 Mother states infant was sleepy and not eagerly latching from first feeding. Mother began with self expression and giving to by syringe. was positive loaiza, became jaundice with low output, supplementing with formula before discharge. Mother was given a nipple shield while in the hospital, reporting she used it a few times and then infant was latching without shield. She is not attempting now using shield. Once home mother would put infant to breast, bottle feed EBM/formula of 60 mls every three hours and would then pump. Infant will latch for a few short bursts, mother reports gives her less effort at breast and will quickly release latch and then refuse to return to breast. Infant is increasing amount by bottle. Mother is pumping 15-20 minutes getting 90 mls with a [employer] double electric pump. Mother has no pain or difficulties with pumping. Mother wishes: Infant to return to breast with less pumping and bottle feedings. OBSERVATION: Tongue is able to move freely past gum ridge, both lips flange easily. Mother has everted nipples with skin intact no redness, blisters, scabbing or abrasions noted. Mother has marked asymmetrical breasts. Mother has issues with positioning/alignment. Assisted with pillows and a roll for her wrist to keep 's head in alignment with nipple. Reviewed feeding cues, frequencies, duration of feedings, feeding elimination flow sheet, and signs of adequate intake. Demonstrated stimulation techniques to wake for feeding. Assisted with infant to breast. Reviewed positioning/alignment in cross cradle, holding breast in ?U? hold and guided asymmetrical latch on. Reviewed rational for each. Infant made eager attempts and is unable to draw nipple in to maintain latch. Suggested use of nipple shield, With shield in place infant was able to latch correctly within a few attempts. nursed eagerly with steady draws and frequent swallowing noted, some pausing noted. Reviewed signs of a correct latch, effective nursing and suck swallow ratio. Suggested mother stimulate while feeding to increase stimulate, increase intake and to assist with maintaining deep latch. would respond to stimulation with increased nursing. Infant would slip to shallow latch causing tenderness. Demonstrated how to adjust latch more deeply while feeding if needed. Mother reports she can feel the difference in latch with no tenderness. Nipple care reviewed of lanolin after feedings, warm compresses as needed. Mother reports this was the most eager this feeding infant has had since discharge. Mother feels she has not had infant in correct position to latch and has not been holding breast for latch or during entire feeding. Reviewed if mother is pumping 90 mls and infant is taking 60mls, infant can decrease intake by the pre and post weights of this feeding. Pre feeding weight: 3085 Post feeding weight: 3154 PLAN: Mother will follow above feeding plan of putting infant to breast using nipple shield each feeding and offering EBM as needed. Mother will continue to pump 5-10 minutes after feeding. Once is able to be satisfied at breast and have adequate weight gain, mother can discontinue pumping and supplementing. Mother will call with further questions or concerns. Follow up phone call scheduled for Saturday11-21-2020.
== END 2021-02-15 23:59 | disposition home or self-care (01) ==
LOC: ANHOBOP 14:33
PROVIDERS: PCP Physician Assistant; Visit Provider Obstetrics & Gynecology
DX: Z39.1 Encounter for care and examination of lactating mother (principal)
CPT/HCPCS: 99212; G0463

== ENCOUNTER 2021-09-27 09:35 | Outpatient (CLI) | payer OTHER, SELFPAY ==
--- NOTE | ~2021-09-27 | US_ITS ---
EXAMINATION: US abdomen complete DATE: 09/27/2021 10:06 INDICATION: Left upper quadrant pain TECHNIQUE: Multiple grayscale and Doppler ultrasound images of the abdomen were obtained. COMPARISON: None available FINDINGS: The head, body, and tail of the pancreas are normal. The liver is normal with normal echoge nicity and echotexture. No surface nodularity. Normal hepatopetal flow in the main portal vein. Stone s are present in the nondistended gallbladder. There is no gallbladder wall thickening or pericholecy stic fluid. The normal common bile duct measures 5 mm. There was no sonographic Keith sign. The visu alized portions of the aorta and inferior vena cava are normal. The right kidney measures 11.3 x 5.9 x 4.6 cm. The left kidney measures 12.1 x 5.4 x 3.9 cm. The kidn eys demonstrate normal parenchymal echogenicity. There is no hydronephrosis. The spleen is normal in appearance and measures 13.8 cm. IMPRESSION: 1. No sonographic correlate for left upper quadrant pain 2. Cholelithiasis without evidence of cholecystitis. Reviewed, dictated and finalized at location A.
== END 2021-09-27 09:36 | disposition home or self-care (01) ==
LOC: CHSIMG 09:36
PROVIDERS: PCP Physician Assistant; Visit Provider Physician Assistant
DX: R10.12 Left upper quadrant pain (principal)
CPT/HCPCS: 76700

== ENCOUNTER 2021-10-03 07:43 | Outpatient (CLI) | payer OTHER, SELFPAY ==
--- NOTE | ~2021-10-03 | XR_ITS ---
EXAMINATION: XR UGI w small bowel DATE: 10/03/2021 10:21 INDICATION: Epigastric and left upper quadrant abdominal pain TECHNIQUE: The patient drank thick barium, gas-producing crystals, and thin barium. Conventional supi ne abdomen radiographs and fluoroscopy of the esophagus, stomach, and small bowel were performed. Flu oroscopy exposure time was 4.0 minutes. The DAP for this procedure was 63.595 Gycm2. COMPARISON: None. FINDINGS: UPPER GASTROINTESTINAL SERIES: There is no mass or stricture of the esophagus. Esophageal motility is normal. There is no hiatal her dee. There was no gastroesophageal reflux with provocative maneuvers. The stomach shows a normal fold ing pattern.] SMALL BOWEL SERIES: Transit time from the stomach to proximal colon was approximately 90 minutes. There is normal caliber and mucosal fold pattern throughout the small bowel. Terminal ileum is normal. No tethering or abn ormal mass effect observed upon the small bowel with real-time fluoroscopy. IMPRESSION: 1. Unremarkable examination. No correlate for left upper quadrant pain identified. Reviewed, dictated and finalized at location B. IMPRESSION: 1. Unremarkable examination. No correlate for left upper quadrant pain identifi ed.
== END 2021-10-03 07:44 | disposition home or self-care (01) ==
LOC: CHSIMG 07:44
PROVIDERS: PCP Physician Assistant; Visit Provider Physician Assistant
DX: R10.13 Epigastric pain (principal)
CPT/HCPCS: 74240; 74248